=== PATIENT | male | born 1980 | race African-American/Black ===

== ENCOUNTER 2016-09-02 16:55 | Emergency (ER) | payer OTHER ==
[2016-09-02 16:59] VITALS: RESP 16; TEMP 98.4; O2SAT 97
--- NOTE | 2016-09-02 17:49 | EDPHY ---
H & P Stated Complaint: R ear pain Time Seen by Provider: 09/02/16 17:27 HPI/ROS: CHIEF COMPLAINT: Right-sided headache with right ear pain HISTORY OF PRESENT ILLNESS: This is a 36-year-old male presenting to the emergency department for CT or MRI studies. Patient was sent by his primary care provider at dr. Liang. Patient states he had been camping most of the weekend on Tuesday he started with a headache at right-sided occipital that radiated to his right ear and right lymph node, patient states initially the pain was tolerable but over the past couple days the pain has increased. Denies any neck stiffness no blurred vision, he stated his primary care was concerned that is why he sent him in for studies REVIEW OF SYSTEMS: Constitutional: No fever, no chills. Eyes: No discharge. No blurred vision ENT: No sore throat. Right ear pain, right-sided neck and lymph node pain Cardiovascular: No chest pain, no palpitations. Respiratory: No cough, no shortness of breath. Gastrointestinal: No abdominal pain, no vomiting. Genitourinary: No hematuria. Musculoskeletal: No back pain. Skin: No rashes. Neurological: Right-sided occipital headache. Source: Patient - Personal History Current Tetanus/Diphtheria Vaccine: Unsure Current Tetanus Diphtheria and Acellular Pertussis (TDAP): Unsure - Medical/Surgical History Hx Asthma: Yes Hx Chronic Respiratory Disease: No Hx Diabetes: No Hx Cardiac Disease: No Hx Renal Disease: No Hx Cirrhosis: No Hx Alcoholism: No Hx HIV/AIDS: No Hx Splenectomy or Spleen Trauma: No Other PMH: shoulder srgy asthma - Social History Smoking Status: Never smoked - Physical Exam Exam: General Appearance: Alert, no distress. HEENT: Normocephalic atraumatic. Occipital nontender on palpation. Pupils equal and round no pallor or injection. TMs bilaterally non serous middle ear effusion Mucous membranes moist. Respiratory: There are no retractions, lungs are clear to auscultation. Cardiovascular: Regular rate and rhythm. Gastrointestinal: Abdomen is soft and nontender, no masses, bowel sounds normal. Neurological: No focal deficits. Cranial nerves all intact. Fine and gross motor skills intact. No ataxia ambulatory with steady gait Answering questions appropriately Skin: Warm and dry, no rashes. Musculoskeletal: Vertebral cervical spine nontender on palpation full range of motion. Extremities: symmetrical, full range of motion. Psychiatric: Patient is oriented X 3, there is no agitation, acting appropriately Constitutional: Initial Vital Signs Temperature (C) 36.9 C 09/02/16 16:57 Heart Rate 71 09/02/16 16:57 Respiratory Rate 16 09/02/16 16:57 Blood Pressure 141/92 H 09/02/16 16:57 O2 Sat (%) 97 09/02/16 16:57 O2 Delivery Mode Room Air Allergies/Adverse Reactions: No Known Allergies Allergy (Unverified 06/18/13 17:28) Home Medications: Medication Instructions Recorded NK [No Known Home Meds] 06/18/13 Medical Decision Making - Diagnostics Imaging Results: Imaging Impressions Brain MRI 09/02/16 17:49 Impression: 1. No significant abnormality identified. 2. Small single focus of nonspecific white matter abnormality in the right centrum semiovale. Neck MRA 09/02/16 17:57 Impression: Normal magnetic resonance angiogram of the neck. Estimation of carotid stenosis is based on [place] Symptomatic Carotid Endarterectomy Trial (NASCET) criteria. I telephoned results to Ana Lopez at 2000 hours. ED Course/Re-evaluation: Discussed ED plan of care: MRI of the brain with and without contrast, 0: Patient returning from MRI, reaction to contrast patient was complaining of some wheezing, throat feeling itchy. Nonlabored respiratory effort, Benadryl and Solu-Medrol ordered IV 1999: Patient re-evaluation--> nonlabored respiratory effort, lungs clear to auscultation bilaterally, no angioedema. patient reports feeling better. 2009: Discussed negative findings on MRI. Results would be sent to Dr. Liang. 2030: The discharge home---> stable, discussed all discharge instructions with patient Differential Diagnosis: Other differential diagnosis considered but not limited to CVA, subarachnoid hemorrhage, mass, and thrombus - Data Points Laboratory Results: Laboratory Results 09/02/16 17:55 09/02/16 17:55 09/02/16 09/02/16 17:55 17:55 WBC 5.41 10^3/uL 10^3/uL (3.80-9.50) RBC 5.44 10^6/uL 10^6/uL (4.40-6.38) Hgb 15.8 g/dL g/dL (13.7-17.5) Hct 47.4 % % (40.0-51.0) MCV 87.1 fL fL (81.5-99.8) MCH 29.0 pg pg (27.9-34.1) MCHC 33.3 g/dL g/dL (32.4-36.7) RDW 12.8 % % (11.5-15.2) Plt Count 215 10^3/uL 10^3/uL (150-400) MPV 10.5 fL fL (8.7-11.7) Neut % (Auto) 42.3 % % (39.3-74.2) Lymph % (Auto) 44.9 % % (15.0-45.0) Faulk % (Auto) 8.7 % % (4.5-13.0) Eos % (Auto) 3.5 % % (0.6-7.6) Baso % (Auto) 0.4 % % (0.3-1.7) Nucleat RBC Rel Count 0.0 % % (0.0-0.2) Absolute Neuts (auto) 2.29 10^3/uL 10^3/uL (1.70-6.50) Absolute Lymphs (auto) 2.43 10^3/uL 10^3/uL (1.00-3.00) Absolute Monos (auto) 0.47 10^3/uL 10^3/uL (0.30-0.80) Absolute Eos (auto) 0.19 10^3/uL 10^3/uL (0.03-0.40) Absolute Basos (auto) 0.02 10^3/uL 10^3/uL (0.02-0.10) Absolute Nucleated RBC 0.00 10^3/uL 10^3/uL (0-0.01) Immature Gran % 0.2 % % (0.0-1.1) Immature Gran # 0.01 10^3/uL 10^3/uL (0.00-0.10) Sodium 142 mEq/L mEq/L (134-144) Potassium 4.8 mEq/L mEq/L (3.5-5.2) Chloride 107 mEq/L mEq/L (97-110) Carbon Dioxide 23 mEq/l mEq/l (22-31) Anion Gap 12 mEq/L mEq/L (8-16) BUN 18 mg/dL mg/dL (7-23) Creatinine 1.2 mg/dL mg/dL (0.7-1.3) Estimated GFR > 60 Glucose 79 mg/dL mg/dL (70-100) Calcium 10.3 mg/dL mg/dL (8.5-10.4) Medications Given: Discontinued Medications Diphenhydramine HCl (Benadryl Injection) 25 mg IVP EDNOW ONE Stop: 09/02/16 19:26 Last Admin: 09/02/16 19:45 Dose: 25 mg Sodium Chloride (Ns) 1,000 mls @ 0 mls/hr IV ONCE ONE PRN Reason: TKO Stop: 09/02/16 19:27 Last Admin: 09/02/16 19:45 Dose: 1,000 mls Ibuprofen (Motrin) 600 mg PO EDNOW ONE Stop: 09/02/16 20:30 Last Admin: 09/02/16 20:35 Dose: 600 mg Methylprednisolone Sodium Succinate (Solu-Medrol) 125 mg IVP EDNOW ONE Stop: 09/02/16 19:26 Last Admin: 09/02/16 19:45 Dose: 125 mg Departure - Departure Disposition: Home, Routine, Self-Care Clinical Impression: Neuralgia and neuritis, unspecified Condition: Good Instructions: Trigeminal Neuralgia (ED) Additional Instructions: 1. He can take ibuprofen 600 mg every 6-8 hours as needed 2. Follow up with Dr. Liang tomorrow 3. If at any point time symptoms worsen if changes in your vision worsening headache losing balance return to the emergency department Referrals: JORDI CHEEMA [Primary Care Provider] - As per Instructions Ezra Liang DO [Non Staff Provider (MD)] - As per Instructions
[2016-09-02 18:12] LABS: % IMMATURE GRANULYOCYTES 0.2 % (0.0-1.1); ABSOLUTE IMMATURE GRANULOCYTES 0.01 10^3/uL (0.00-0.10); ADD DIFF? NO; ADD MORPH? NO; ADD SCAN? NO; ATYPICAL LYMPHOCYTE FLAG 20 (0-99); FRAGMENT RBC FLAG 0 (0-99); HEMATOCRIT 47.4 % (40.0-51.0); HEMOGLOBIN 15.8 g/dL (13.7-17.5); LEFT SHIFT FLG 0 (0-99); LIPEMIA HEMOLYSIS FLAG 80 (0-99); MEAN CELL HEMOGLOBIN CONCENTR. 33.3 g/dL (32.4-36.7); MEAN CELL VOLUME 87.1 fL (81.5-99.8); MEAN PLATELET VOLUME 10.5 fL (8.7-11.7); PLATELET CLUMPS FLAG 10 (0-99); PLATELET COUNT 215 10^3/uL (150-400); RED BLOOD CELL COUNT 5.44 10^6/uL (4.40-6.38); RED CELL DISTRIBUTION WIDTH 12.8 % (11.5-15.2)
[2016-09-02] MEDS ORDERED: GADOBUTROL 10 ML VIAL IVP ONE (18:17)
[2016-09-02 18:25] LABS: ANION GAP 12 mEq/L (8-16); CALCIUM 10.3 mg/dL (8.5-10.4); CARBON DIOXIDE 23 mEq/l (22-31); CHLORIDE 107 mEq/L (97-110); CREATININE 1.2 mg/dL (0.7-1.3); GLOMERULAR FILTRATION RATE > 60; GLUCOSE 79 mg/dL (70-100); POTASSIUM 4.8 mEq/L (3.5-5.2); SODIUM 142 mEq/L (134-144)
[2016-09-02] MEDS ORDERED: methylPREDNISolone SOD SUCC 125 MG/2 ML VIAL IVP ONE (19:25)
[2016-09-02] MEDS: NS 1,000 ML IV ONE (19:45)
[2016-09-02 20:09] VITALS: BP 155/95; PULSE 78
[2016-09-02] MEDS ORDERED: IBUPROFEN 600 MG TAB PO ONE (20:29)
== END 2016-09-02 20:45 | disposition home or self-care (01) ==
DX: M79.2 Neuralgia and neuritis, unspecified (principal); J45.909 Unspecified asthma, uncomplicated
CPT/HCPCS: 96374; A9585; J1200